=== PATIENT | male | born 1985 | race Caucasian/White ===

== ENCOUNTER 2022-12-28 12:52 | Emergency (ER) | payer SELFPAY ==
[2022-12-28] MEDS ORDERED: Ondansetron 4 MG Tab.DIS PO ONE (13:04)
== END 2022-12-28 13:18 | disposition home or self-care (01) ==
LOC: MW.ED 12:52
DX: F11.10 Opioid abuse, uncomplicated (principal)
CPT/HCPCS: 99283; A9270